=== PATIENT | male | born 1930 | race Caucasian/White ===

== ENCOUNTER → 2018-07-05 | Outpatient (CLI) | payer MEDICARE, OTHER ==
[~2018-07-05] MED LIST: AMIO200 PO; ATOR80 PO; Allergy Medicin25 MG PO; CEPH500 PO; CIPR250 PO; CLOP75 PO; DOXA4 PO; FINA5 PO; HM ACETAMINOPH1 EAC1 PO; LISI5 PO; MECL25 PO; MELATONIN5 M1 PO; Multiple Vitam1 EAC1 PO; Nitrostat0.4 MG SL; OSTEO BI-FLEX1 EAC2 PO; XARELTO20 MG PO; [UNRECOGNIZED DRUG - OTHER]; [UNRECOGNIZED DRUG - OTHER] PO
[2018-07-05 12:32] LABS: Source, Urine Clean Catch
[2018-07-05 18:18] LABS: Appearance, Urine Hazy (Clear); Bilirubin, Urine Neg (Neg); Blood, Urine 5+ (Neg); Color, Urine Yellow (P-Yellow); Glucose Qualitative, Urine Neg (Neg); Ketones, Urine Neg (Neg); Leukocyte Esterase, Urine 3+ (Neg); Nitrite, Urine Pos (Neg); Protein, Urine 3+ (Neg); Specific Gravity, Urine 1.015 (1.003-1.022); Urobilinogen, Urine NORM (Normal)
[2018-07-05 18:27] LABS: Bacteria Many /hpf; Squamous Epithelial Cells Not Seen /hpf (Few); White Blood Cells, Urine 25-50 /hpf (0-5)
== END ==
LOC: LAB 12:31 → LAB SHORT 12:31
PROVIDERS: Internal Medicine
DX: R35.0 Frequency of micturition (principal)
CPT/HCPCS: 81001; 87077; 87086; 87186

== ENCOUNTER 2019-11-21 11:07 | Day surgery (SDC) | payer MEDICARE, OTHER ==
[~2019-11-21] VITALS: Ht 177.8 cm; Wt 95.0 kg
--- NOTE | 2019-11-21 15:50 | NUR ---
PT TO RECOVERY ROOM POST PROCEDURE. PT IS AWAKE AND ANSWERING QUESTIONS APPROPRIATELY. PT REPORTS MIN DISCOMFORT R ARM 2/10, ACHEY IN CHARACTER; DENIES THE NEED FOR MEDICATION. PT DENIES CHEST PAIN OR PRESSURE POST PROCEDURE. MONITOR SB 48-50'S, B/P 123/65, AFEBRILE, SPO2 95% RA. R RADIAL SITE NO SWELLING/HEMATOMA, TR BAND IN PLACE. PT'S FAMILY HERE AT BEDSIDE, ATTENTIVE. DR DELGADO DISCUSSED RESULTS WITH PT AND FAMILY.
--- NOTE | 2019-11-21 18:05 | NUR ---
PT AMB TO BATHROOM, GAIT STEADY, SITE UNCHANGED WITH ACTIVITY.
--- NOTE | 2019-11-21 18:20 | NUR ---
PT WAS ASSISTED GETTING DRESSED, TR BAND REMOVED AND CLOTH DOT WITH WRIST IMMOBILIZER APPLIED; IV REMOVED CANNULA INTACT. PT AND FAMILY RECEIVED DISCHARGE INSTRUCTIONS, MED LIST AND "AFTER CARE" INSTRUCTIONS; VERBALIZED GOOD UNDERSTANDING. PT LEFT FACILITY VIA W/C, CONDITION STABLE.
== END 2019-11-21 23:12 | disposition home or self-care (01) ==
LOC: MHTC 11:07
PROC: 4A023N7 Measurement of Cardiac Sampling and Pressure, Left Heart, Percutaneous Approach (ICD-10-PCS; principal; 2019-11-21)
PROC: B205YZZ Plain Radiography of Left Heart using Other Contrast (ICD-10-PCS; principal; 2019-11-21)
PROC: B201YZZ Plain Radiography of Multiple Coronary Arteries using Other Contrast (ICD-10-PCS; principal; 2019-11-21)
DX: I25.119 Atherosclerotic heart disease of native coronary artery with unspecified angina pectoris (principal); T82.855A Stenosis of coronary artery stent, initial encounter; Y71.2 Prosthetic and other implants, materials and accessory cardiovascular devices associated with adverse incidents; Z79.899 Other long term (current) drug therapy
CPT/HCPCS: 76937; 93454; 99152; 99153; C1769; C1894; J1644; J2250; J3010; J7030; Q9967

== ENCOUNTER → 2020-07-06 | Outpatient (CLI) | payer MEDICARE, OTHER | END | disposition home or self-care (01) | LOC: LAB 12:12 → LAB SHORT 12:12 | DX: D48.5 Neoplasm of uncertain behavior of skin (principal) | CPT/HCPCS: 88305 ==

== ENCOUNTER 2020-07-26 14:54 | Inpatient (IN) | payer MEDICARE, OTHER ==
[~2020-07-26] VITALS: Ht 180.3 cm; Wt 93.0 kg
[~2020-07-26 14:54] MED LIST changes: -AMIO200 PO; -DOXA4 PO; -FINA5 PO; -XARELTO20 MG PO
[2020-07-26 16:33] LABS: BASOPHILS ABSOLUTE AUTO 0.01 K/mm3 (0.00-0.23); BASOPHILS PERCENT AUTO 0 % (0-2); EOSINOPHILS PERCENT AUTO 0 % (0-6); Hematocrit 42.4 % (37.0-53.0); Hemoglobin 13.8 g/dL (13.5-17.5); IMMATURE GRAN ABSOLUTE AUTO 0.03 K/mm3 (0.00-0.10); IMMATURE GRAN PERCENT AUTO 0 % (0-1); LYMPHOCYTES ABSOLUTE AUTO 1.03 K/mm3 (0.84-5.20); LYMPHOCYTES PERCENT AUTO 11 % (21-46); MONOCYTES ABSOLUTE AUTO 0.53 K/mm3 (0.16-1.47); MONOCYTES PERCENT AUTO 6 % (4-13); Mean Corpuscular HGB 29.9 pg (26.0-34.0); Mean Corpuscular HGB Conc 32.5 g/dL (31.5-36.5); Mean Corpuscular Volume 92 fL (80-100); Mean Platelet Volume 10.1 fL (9.1-12.4); NEUTROPHILS ABSOLUTE AUTO 7.82 K/mm3 (1.96-9.15); NEUTROPHILS PERCENT AUTO 83 % (41-73); Platelet Count 212 K/mm3 (150-400); RDW Coefficient Variation 12.1 % (11.7-14.2); RDW Standard Deviation 40.9 fL (35.1-46.3); Red Blood Cell Count 4.62 M/mm3 (4.30-5.90); White Blood Cell Count 9.42 K/mm3 (4.00-11.30)
[2020-07-26 16:45] LABS: Alanine Aminotransfer (ALT/SGP 28 U/L (12-78); Albumin, Blood 3.3 g/dL (3.4-5.0); Albumin/Globulin Ratio 0.8 (0.8-1.8); Alk Phos 51 U/L (50-136); Anion Gap 9 mmol/L (6-16); Aspartate Aminotrans (AST/SGOT 36 U/L (12-37); Blood Urea Nitrogen 32 mg/dL (8-24); Bun/Creatinine Ratio 27.6 (12.0-20.0); CO2, Blood 23 mmol/L (21-32); Chloride, Blood 112 mmol/L (98-108); Creatinine, Blood 1.16 mg/dL (0.60-1.20); Globulin, Blood 4.3 g/dL (2.2-4.0); Glomerular Filtration Rate >60 (60-); Glucose, Blood 157 mg/dL (70-99); Potassium, Blood 3.7 mmol/L (3.5-5.5); Sodium, Blood 144 mmol/L (136-145); Total Protein, Blood 7.6 g/dL (6.4-8.2); Troponin I 0.026 ng/mL (0.000-0.040)
[2020-07-26] MEDS ORDERED: DOXA4 PO (19:51)
[2020-07-26] MEDS ORDERED: FINA5 PO (19:51)
[2020-07-26] MEDS ORDERED: XARELTO15 MG PO (19:52)
[2020-07-26] MEDS ORDERED: PACERONE100 M1 PO (19:53)
[2020-07-26] MEDS ORDERED: DONEPEZIL HCL10 M1 PO (20:14)
--- NOTE | 2020-07-27 00:59 | NUR ---
PT FALL PT WAS FOUND DOWN ON THE GROUND IN HIS ROOM. ONLY MINOR INJURY TO PT R KNEE WAS NOTED. HOSPITALIST NOTIFIED AND ORDERED RESTRAINTS FOR PT AND TO CONTINUE TO MONITOR.
--- NOTE | 2020-07-27 04:12 | NUR ---
SHIFT SUMMARY ASSUMED CARE OF PT AT 1900. PT IS A/OX1, DENIES N/T IN EXTREMITES. HEART SOUNDS REGULAR, TELE SHOWS ACCELERATED JUNCTIONAL @ 70, DENIES CP. LUNG SOUNDS HAVE FINE CRACKLKES T/O, PT WAS ON 1L NC ON ADMISSION BUT IS NOT ON 2L POST FALL, SEE POST FALL ASSESSMENT FOR MORE INFORMATION. PT URINE IS DARK AND HAS AN ODOR. PT IS UNABLE TO UNDERSTAND HOW TO USE THE URINAL AND IT IS BEST FOR HIM TO USE THE BSC WITH 2P ASSIST. PT WAS PUT IN SHERLYN PER DOCTORS ORDERS FOR HIS SAFETY. PT BRUSIED HIS R KNEE IN THE FALL. PT MOANS AND GOANS MORE WHEN MOVING IN BED OR STANDING SINCE AFTER FALL. CALL LIGHT IN REACH, BED IN LOWEST POSTION, BED ALARM ON. WILL CONTINUE TO MONITOR.
--- NOTE | 2020-07-27 07:54 | NUR ---
TRANSFERED TO [facility]. REPORT GIVEN TO CIPRIANO Levin RN. PT TRANSFERED TO [facility] ROOM. BED LOCKED, BED ALARM ON. MONITORS IN PLACE.
--- NOTE | 2020-07-27 15:30 | NUR ---
PATIENT IS PATIENTLY CONFUSED. ALERT AND ORIENTED TO HIMSELF ONLY. PATIENT IS IN RESTRAINTS D/T FALL LAST NIGHT AND PATIENT CONTINUOUS ATTEMTS TO GET UP BY HIMSELF AND DOOR BEING CLOSED D/T COVID +. VITALS HAVE BEEN STABLE. PATIENT DENIES PAIN AND DISCOMFORT. COOPERATIVE WITH STAFF EVEN WITH RESTRAINTS IN PLACE. PATIENT IS INCONT OF BLADDER AND BOWEL. RESTAINT PROTOCOL FOLLOWED. PATIENT RESTING IN BED AT THIS TIME. WILL CONTINUE TO MONITOR AND PROVIDE CARE NEEDED.
--- NOTE | 2020-07-27 22:35 | NUR ---
PT's Son Dony called for update on Fathers condition. updated & he will call around 10 AM tomorrow for further update. PT resting quietly with HOB up. Fed some ensure & yogurt. PT has upper denture, offered soft foods, needed fed. Vest & soft ankle restraints continue to prevent further falls. Bed alarm activated. PT on remote camera monitoring.
--- NOTE | 2020-07-28 03:08 | NUR ---
89 year old MAle with baseline dementia & admission dx of covid 19 positive URI. Continues on 2 l nc HOB up & aspiration precautions. PT continues high fall risk with fall this hospitalization. On remote camera monitoring with bilat ankle restraints & perla vest to prevent unassisted transfer attempts. Resting quietly with HOB elevated. Oxygen 2 l NCsat up to 92%. Nonprod cough loose. Covid 19 positive special enhanced isolation precautions. bed alarm activated. Son Dony updated on plan of care.
[2020-07-28 08:52] LABS: BASOPHILS ABSOLUTE AUTO 0.03 K/mm3 (0.00-0.23); BASOPHILS PERCENT AUTO 0 % (0-2); EOSINOPHILS ABSOLUTE AUTO 0.01 K/mm3 (0.00-0.68); EOSINOPHILS PERCENT AUTO 0 % (0-6); Hematocrit 43.3 % (37.0-53.0); Hemoglobin 14.3 g/dL (13.5-17.5); IMMATURE GRAN ABSOLUTE AUTO 0.03 K/mm3 (0.00-0.10); IMMATURE GRAN PERCENT AUTO 0 % (0-1); LYMPHOCYTES ABSOLUTE AUTO 1.13 K/mm3 (0.84-5.20); LYMPHOCYTES PERCENT AUTO 10 % (21-46); MONOCYTES ABSOLUTE AUTO 0.51 K/mm3 (0.16-1.47); MONOCYTES PERCENT AUTO 4 % (4-13); Mean Corpuscular HGB 30.2 pg (26.0-34.0); Mean Corpuscular Volume 91 fL (80-100); Mean Platelet Volume 10.1 fL (9.1-12.4); NEUTROPHILS ABSOLUTE AUTO 10.09 K/mm3 (1.96-9.15); NEUTROPHILS PERCENT AUTO 85 % (41-73); Platelet Count 220 K/mm3 (150-400); RDW Coefficient Variation 12.1 % (11.7-14.2); RDW Standard Deviation 40.9 fL (35.1-46.3); Red Blood Cell Count 4.74 M/mm3 (4.30-5.90)
[2020-07-28 09:07] LABS: Albumin, Blood 3.1 g/dL (3.4-5.0); Albumin/Globulin Ratio 0.7 (0.8-1.8); Bun/Creatinine Ratio 37.9 (12.0-20.0); Calcium, Blood 9.2 mg/dL (8.5-10.1); Creatinine, Blood 1.32 mg/dL (0.60-1.20); Globulin, Blood 4.7 g/dL (2.2-4.0); Potassium, Blood 3.6 mmol/L (3.5-5.5); Total Protein, Blood 7.8 g/dL (6.4-8.2)
[2020-07-28] MEDS ORDERED: Vitamin B-121000 MCG PO (13:35)
[2020-07-28] MEDS ORDERED: VITAMIN D325 MC3 PO (13:38)
[2020-07-28] MEDS ORDERED: ASCO500 PO (13:39)
[2020-07-28] MEDS ORDERED: MELATONIN5 M1 PO (13:46)
[2020-07-28] MEDS ORDERED: Fiber Tabs625 MG PO (13:49)
[2020-07-28] MEDS ORDERED: BENADRYL25 MG PO (13:50)
[2020-07-28] MEDS ORDERED: GUAI200 PO (13:50)
--- NOTE | 2020-07-28 15:36 | NUR ---
PATIENT HAS BEEN PLEASANTLY CONFUSED. WHEN I WENT TO DO HIS ASSESSMENT THIS MORNING HE APPEARED A LITTLE AGGITATED SO I GAVE HIM A DOSE OF IM ZYPREXA TO CALM HIM DOWN WHICH WAS EFFECTIVE. PATIENT TOOK HIS MEDICATION WHOLE IN PUDDING WITHOUT COMPLICATION. HEART RATE/RHYTHM HAS BEEN IN AFIB AND ELEVATED HOWEVER HIS VITALS HAVE BEEN WNL. SPOKE WITH HIS SON LYNN TODAY WHO PROVIDED ME WITH PATIENTS CURRENT MED LIST; MED REC COMPLETED. PATIENT REMAINS ON 2L O2. RESTS IN BED WITH MINIMAL APPETITE. WILL CONTINUE TO MONITOR AND PROVIDE CARE NEEDED.
[2020-07-29 05:12] LABS: BASOPHILS ABSOLUTE AUTO 0.01 K/mm3 (0.00-0.23); BASOPHILS PERCENT AUTO 0 % (0-2); EOSINOPHILS PERCENT AUTO 0 % (0-6); Hematocrit 42.3 % (37.0-53.0); Hemoglobin 13.9 g/dL (13.5-17.5); IMMATURE GRAN ABSOLUTE AUTO 0.08 K/mm3 (0.00-0.10); IMMATURE GRAN PERCENT AUTO 1 % (0-1); LYMPHOCYTES ABSOLUTE AUTO 0.72 K/mm3 (0.84-5.20); LYMPHOCYTES PERCENT AUTO 6 % (21-46); MONOCYTES ABSOLUTE AUTO 0.48 K/mm3 (0.16-1.47); MONOCYTES PERCENT AUTO 4 % (4-13); Mean Corpuscular HGB Conc 32.9 g/dL (31.5-36.5); Mean Corpuscular Volume 91 fL (80-100); Mean Platelet Volume 10.6 fL (9.1-12.4); NEUTROPHILS ABSOLUTE AUTO 10.45 K/mm3 (1.96-9.15); NEUTROPHILS PERCENT AUTO 89 % (41-73); Platelet Count 254 K/mm3 (150-400); RDW Coefficient Variation 12.5 % (11.7-14.2); RDW Standard Deviation 41.6 fL (35.1-46.3); Red Blood Cell Count 4.64 M/mm3 (4.30-5.90); White Blood Cell Count 11.74 K/mm3 (4.00-11.30)
--- NOTE | 2020-07-29 05:18 | NUR ---
89 YEAR OLD MaLE WITH BASELINE DEMENTIA WITH BEHAVIORAL DISTURBANCES, FALLS COVID 19 CONTINUES IN ENHANCED FRAN[PLET CONTACT PRECAUTION. PT HAD CXR SHOWING BILAT PNEUMONIA GROUND GLASS OPACITIES. HE IS NONVERBAL WITHDRAWN, OCCASIONAL SMILES. KEEPS 1 EYE CLOSED. OXYGEN 3 L TO KEEP SATS 90%. CONTINUES WITH SHERLYN VEST & BILAT ANKLE RESTRAINTS DUE TO MULTIPLE FALLS & ATTEMPTS TO TRANSFER UNASSISTED. NO ATTEMPTS TO FEED SELF, OFFERED ENSURE FED YOGURT 7 SHERBERT 50%.
[2020-07-29 05:52] LABS: Albumin, Blood 2.8 g/dL (3.4-5.0); Albumin/Globulin Ratio 0.6 (0.8-1.8); Bilirubin, Total 0.8 mg/dL (0.1-1.0); Bun/Creatinine Ratio 37.8 (12.0-20.0); Calcium, Blood 9.4 mg/dL (8.5-10.1); Creatinine, Blood 1.93 mg/dL (0.60-1.20); Globulin, Blood 4.8 g/dL (2.2-4.0); Potassium, Blood 3.5 mmol/L (3.5-5.5); Total Protein, Blood 7.6 g/dL (6.4-8.2)
[2020-07-29 13:09] LABS: PCO2 Arterial 35.7 mmHg (35-45); PO2 Arterial 52.4 mmHg (80-100); pH Blood Arterial 7.44 (7.35-7.45)
--- NOTE | 2020-07-29 13:11 | NUR ---
DECREASED LOC- WENT IN TO REPOSITION PT AND GET READY FOR LUNCH. PT WOULD NOT RESPOND TO VERBAL STIMULI OR STERNAL RUB. PT DID EVENTUALLY MOAN SLIGHTLY AND RESPONDED SLIGHTLY MORE DURING NEW IV PLACEMENT. VSS. TELE AFIB AT 100. DR DESIR NOTIFIED AND AT BEDSIDE. PER SON PT WHERE CPAP AT BASELINE, PER DR DESIR GET ABG. PT CURRENTLY SATS 91% ON 4L. RT AT BEDSIDE AND ABG COMPLETED. PER RT AFTER RESULTS OF ABG RECOMMEDNING PLACING PT ON OXYMIZER OR HIGH FLOW 02 AND TURNING UP TO 5L. WILL CONT TO MONITOR.
--- NOTE | 2020-07-29 14:18 | NUR ---
Case conference and update to pt's SonSantos and josh, Abi re: change in status, decreased LOC and increased O2 needs. I was unable to reach pt's . and josh are currently battling Covid-19 at home. did not have VM set up so that I could update her. Son will update his mom and return call within an hour. [facility] provides pt's CPAP. Children are requesting comfort care but want to confirm with their mom. SonSantos, states he and his mom spoke about this already last night. Son requests that if CPAP provides comfort that we provide but does not want it employed if his dad pulls it off or it is making his agitation worse. Comfort care explained to son and josh both in phone calls. Both in favor of no more testing or interventions and initiating Comfort care. They both report pt's decline due to dementia over the past year, especially past 4 weeks. 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 His miguel has put him at peace with a long time ago, per children. RN and updated on my conversations with family. Await final instructions from pt's son/.
--- NOTE | 2020-07-29 14:19 | NUR ---
CONFIRMED WITH [facility], CPAP SETTING OF AUTO 4-20. RT NOTIFIED.
--- NOTE | 2020-07-29 15:08 | NUR ---
PAL CARE NOTE - RETURN CALL FROM SON, SANTOS [phone]. HE IS OUR FAMILY CONTACT PT'S AND TAYLOR ARE VERY ILL CURRENTLY. They had a conference call between , taylor and Santos and are all in agreement that they would like Santos placed on comfort care as soon as possible. They ask that we offer ice cream if it is safe for him to swallow and that we cont to attempt to keep his O2 in place but they do not want us to begin CPAP use. Family want pt to be able to sleep and keep his respiratory or other s/s minimized for his comfort. Dr had been updated and VO obtained for comfort care, also entered per family request. All of above relayed to RN and . I assured son that we would tell pt that his and children loved him and were with him in every way they could be, even if it did not appear that pt was awake/alert, responsive. Son expressed great appreciation of the care his dad is receiving. He asked that we feel free to call him at any time with updates.
--- NOTE | 2020-07-29 17:22 | NUR ---
SHIFT SUMMARY- PT A/O TO SELF ONLY. THIS AM PT RESPONDED TO VERBAL STIMULI AND WAS ABLE TO TELL ME HIS NAME AND DATE AND WOULD ANSWER YES/NO QUESTIONS. PT ATE 100% OF BREAKFAST WITH ASSISTANCE. PT DENIED ANY COMPLAINTS. LS DIMINISHED, ON 3L N/C WITH SATS 86-87%, 02 INCREASED TO 4L AT THIS TIME. PT NOTED TO HAVE LOOSE NPC. TELE AFIB AT 100. PT IN SHERLYN AND SOFT ANKLE RESTRAINTS, ANKLE RESTRAINTS DC'D AT THIS TIME, PT COOPERATIVE WITH CARE. PT INCONT OF URINE. GLUCOSE NOTED TO BE 263 ON AM LABS AND GLUCOSE AND LSS INSULIN ORDERED WELL IVF. BY MID AFTERNOON PT NOTED TO HAVE DECREASED LOC. PT WOULD NOT RESPOND TO VERBAL OR PAINFUL STIMULI. ABG COMPLETED. 02 INCRASED TO 6L OXYMIZER PER RT AND ORDERS FOR BASELINE CPAP ORDERED. PALLIATIVE CARE CALLED AND SPOKE WITH SON, DAUGHTER AND SPOUSE AND DECISION WAS MADE TO MAKE PT COMFORT CARE AT THIS TIME. PT HAS REMAINED COMFORTABLE, PT CONT TO NOT RESPOND, OCCASIONALLY WILL MOAN WITH REPOSITIONING. SHERLYN GRIGSBY DC'D. GRANDSON IN TO SEE PT THIS EVENING, GRANDSON UPDATED VIA PHONE BY PT SON LYNN.
--- NOTE | 2020-07-29 18:18 | NUR ---
THIS EVENING PT OPENS EYES TO VERBAL STIMULI, ANSWERING YES/NO QUESTIONS. GRANDSON REMAINS AT BEDSIDE AND ATTEMPTING TO FEED PT ICE CREAM. PT DENIES ANY COMPLAINTS HOWEVER GRANDSON REPORTS PT NOTED TO BE SHAKING AT TIMES.
--- NOTE | 2020-07-29 20:24 | NUR ---
PT covid 19 positive was changed to comfortmeasures this afternoon. Anup sanchez at bedside supportive. following precautions for covid 19 PT visitors on comfort care with PPE & handwashing to prevent spread of covid 19. PT unresponsive at this time. resting quietly with HOB up.
--- NOTE | 2020-07-29 23:17 | NUR ---
continues to appear comfortable in special dropletcontact isolation for covid 19
--- NOTE | 2020-07-30 06:40 | NUR ---
PT transferred to comfort measures & he was alert at times and at baseline dementia. Covid positive hob up to promote lung expansion. DTR admitted to [facility] during NOC for covid positive status with another [employer] member also hospitalized with covid 19 positive status.
--- NOTE | 2020-07-30 08:49 | NUR ---
AM ASSESSMENT- PT AWAKE THIS AM, PT A/O TO SELF ONLY. PT DENIES ANY COMPLAINTS. LS COARSE IN THE UPPER LOBES, DIMINISHED BASES, LOOSE NPC NOTED, ON 4L N/C. PT INCONT OF URINE. PT APPEARS TO BE COMFORTABLE AND IN NO ACUTE DISTRESS. PT WAS ATTEMPTING TO GET OUT OF BED THIS AM BUT DID FOLLOW DIRECTION WHEN ASKED TO LIE BACK DOWN. PT DID EAT APROX 80% OF BREAKFAST THIS AM WITH ASSISTANCE.
--- NOTE | 2020-07-30 17:25 | NUR ---
SHIFT SUMMARY- PT A/O TO SELF ONLY. VERY [place]. PT ON COMFORT CARE AT THIS TIME. PT HAS DENIES ANY PAIN T/O THE DAY. PT HAS BEEN AWAKE T/O MOST OF THE DAY BUT DID HAVE AN EPISODE OF DECREASED LOC WHILE UP ON THE BSC. PT WAS ASSISTED BACK INTO BED VIA 2 PERSON MAX ASSIST AND PT WAS ABLE TO BECOME MORE RESPONSIVE. LS COARSE, LOOSE NPC NOTED. PT WAS ABLE TO EAT TODAY WITH ASSISTANCE, DIET CHANGED TO PUREED DUE TO PT NOTED TO BE POCKETING FOOD. PT ATTEMPTING TO GET OUT OF BED A FEW TIMES TODAY, THIS NOTED TO INCREASE WHEN PT NEEDING TO USE THE RESTROOM. ATIVAN 0.5MG GIVEN X1 THIS SHIFT. SPOKE WITH PALLIATIVE CARE REGARDING PT BECOMING MORE AWAKE AND ALERT TODAY COMPARED TO YESTERDAY, JEAN SPOKE WITH FAMILY AND DR DESIR AND PLAN IS TO CONTINUE ON COMFORT CARE ORDERED. PT WAS OFFERED ICE CREAM PER FAMILY REQUEST. NO OTHER ACUTE CHANGES THIS SHIFT.
--- NOTE | 2020-07-31 05:36 | NUR ---
Patient slept well. woke only a couple of times, each when he was wet. Confused as to why he is here and was working to find words to ask questions at one point around HS. Wakes easily when checked on. No pain or anxiety meds given overnight.
--- NOTE | 2020-07-31 16:48 | NUR ---
[facility] CALLED FOR UPDATE ON PATIENT STATUS. PATIENT INCREASE FATIGUE TODAY, NO SIGNS OF IMPULSIVITY LIKE YESTERDAY, MINIMAL RESPONSE WHEN VERBALIZING NAME WITH EYES OPENING, NO VERBAL RESPONSE FOR THIS RN. LABS REGARDING KIDNEY FUNCTION AND LUNG SOUNDS PROVIDED.
--- NOTE | 2020-07-31 19:34 | NUR ---
Shift Summary Patient has not communicated verbally this shift, not like yesterday. No signs of impulsivity noted. Does respond minimally to name by opening eyes. L/S wet and wheezy, atropine given x 1. Appetite is still somewhat good, but patient was not alert enough to finish all meals. Son (Luis Alberto) called and updates were provided. No other changes.
--- NOTE | 2020-08-01 03:35 | NUR ---
SHIFT SUMMARY PATIENT ON COMFORT CARE AND NON-VERBAL THIS SHIFT. NOT ORIENTED AT THIS TIME. NO ACUTE CHANGES OBSERVED. PIV REMAINS INTACT. PO ATIVAN GIVEN FOR ANXIETY-INSOMNIA. BEDREST. COVID-19 POSITIVE; DROPLET PRECAUTIONS. CALL LIGHT IN REACH. BED IN LOWEST POSITION AND ALARM ACTIVATED. WILL CONTINUE TO MONITOR UNTIL DAY SHIFT NURSE ASSUMES CARE.
--- NOTE | 2020-08-01 10:15 | NUR ---
PT IS NON-VERBAL AT THIS TIME, SMALL RESPONSE,TWITCH, TO TOUCH AND VOICE. PT DOES NOT ACKNOWLEDGE RN PRESENCE, EYES OPEN BUT NOT FOLLOWING MOVEMENT. WILL CONTINUE TO MONITOR
--- NOTE | 2020-08-02 03:30 | NUR ---
SHIFT SUMMARY PATIENT ON COMFORT CARE AND NON-VERBAL AT THIS TIME. EYES OPEN BUT NOT ABLE TO TRACT MOVEMENT. PV REMAINS INTACT. SON CALLED THIS SHIFT FOR UPDATE. NO S/SX OF PAIN OR N/V. RESTING IN BED. COVID-19 POSITIVE. DROPLET PRECAUTIONS. CALLL LIGHT IN REACH. BED IN LOWEST POSITION AND ALARM ACTIVATED. WILL CONTINUE TO MONITOR UNTIL DAY SHIFT NURSE ASSUMES CARE.
--- NOTE | 2020-08-02 16:33 | NUR ---
SPOKE TO PT'S SON LYNN BY PHONE, GAVE UPDATE ON PT'S CONDITION.
--- NOTE | 2020-08-02 17:44 | NUR ---
SHIFT SUMMARY: PT ON COMFORT CARE, NON RESPONSIVE TO SOUND AND TOUCH. TOLERATING ORAL CARE. APPEARED PAINFUL, MEDICATED FOR PAIN PER EMAR. INCONTINENT OF B&B, ATTENDS IN PLACE, LOW URINE OUTPUT. GAVE SON UPDATE OVER THE PHONE.
--- NOTE | 2020-08-02 21:02 | NUR ---
08/02/201929 RESTING IN BED WITHOUT DISTRESS.
--- NOTE | 2020-08-02 21:08 | NUR ---
08/02/202044 RN AND GLAZIER METAL FURNITURE ENTERED ROOM TO FIND PT HAD . NO PULSE OR BREATHING NOTED. PUPILS DILATED. RN NOTIFIED DY[employer] DEVELOPERTANNER AND NOTIFIED SON,LYNN AT 2057. SON STATED THAT NO ONE WOULD BE VISITING THE PT IN HOSPITAL. [facility] IS THE MORTUARY THE SON WANTS THE BODY TO GO.
--- NOTE | 2020-08-02 21:16 | NUR ---
08/02/202115 RN NOTIFIED DR MAIN OF PT EXPIRING. "OKAY." TRAINING AND DEVELOPMENT DIRECTOR TO NOTIFY MORTUARY.
--- NOTE | 2020-08-03 03:11 | NUR ---
08/03/20 0010 JAYME CARLSON FROM [facility] WAS HERE TO MANAGER PLAN THE BODY. BELONGINGS BAG WITH CLOTHES AND UPPER DENTURE SENT WITH PT. INFORMED HIM THAT PT WAS COVID-19 POSITIVE AND USE APPROPRIATE PRECAUTIONARY TECHNIQUES. PT ALSO HAD RING TO LEFT HAND.
--- NOTE | 2020-08-08 00:48 | NUR ---
POST FALL ASSESSMENT CORRECTION ON 07/27/20 @ 0025, PT SUFFERED A FALL. PT WEISS FALL SCALE BEFORE THE FALL WAS 60. AFTER THE FALL PT SCORED A 85. BED ALARMS WERE ON, PT WAS CHECKED ON 30 MIN PRIER TO FALL.
== END 2020-08-02 20:45 | DRG 177 ==
LOC: ER 14:54 → MEDS 19:35
PROVIDERS: Internal Medicine; Physician Assistant; ADMIT Internal Medicine
DX: U07.1 COVID-19 (principal); G92 Toxic encephalopathy; F02.81 Dementia in other diseases classified elsewhere, unspecified severity, with behavioral disturbance; N17.9 Acute kidney failure, unspecified; I25.10 Atherosclerotic heart disease of native coronary artery without angina pectoris; E78.00 Pure hypercholesterolemia, unspecified; Z66 Do not resuscitate; G30.9 Alzheimer's disease, unspecified; N40.0 Benign prostatic hyperplasia without lower urinary tract symptoms; Z78.1 Physical restraint status; R73.9 Hyperglycemia, unspecified; T38.0X5A Adverse effect of glucocorticoids and synthetic analogues, initial encounter; Y92.239 Unspecified place in hospital as the place of occurrence of the external cause; R35.0 Frequency of micturition; G47.33 Obstructive sleep apnea (adult) (pediatric); I10 Essential (primary) hypertension; Z51.5 Encounter for palliative care
CPT/HCPCS: 36415; 36600; 71045; 80053; 82803; 82947; 83880; 84145; 84484; 85025; 93005; 93010; 99285-25; A9270-GY; J1940; J2060; J7030; J7050; U0002